=== PATIENT | male | born 1975 ===

== ENCOUNTER 2021-02-07 10:46 | Emergency (ER) | payer SELFPAY ==
--- NOTE | 2021-02-07 12:11 | Emergency Department Report ---
HPI - General Chief Complaint: Pain General Time Seen by Provider: 02/07/21 11:49 - HPI HPI: 45-year-old male with no past medical history presents complaining of left-sided chest wall/rib pain which was precipitated by an exertional event 2 hours prior to arrival. The patient states that he was attempting to close the schilling of the car. He was helping multiple other individuals using a wood board and use his upper body to try to push open the schilling when he felt a pop and had immediate pain in the left side of his chest wall/ribs. He states that the pain is worse when that part of the body is moved or when he takes a deep breath. The pain is nonradiating. It is not in the center of his chest but on the left flank. He denies any associated headache, vision change, neck pain, back pain, palpitations, diaphoresis, nausea/vomiting, abdominal pain, limb pain, or any other complaints. ED Past Medical Hx - Past Medical History Previous Medical History?: No - Social History Smoking Status: Current Every Day Smoker Substance Use Type: Alcohol - Medications Home Medications: Home Medications Medication Instructions Recorded Confirmed Last Taken Type Ibuprofen [Motrin 600 MG tab] 600 mg PO Q8H PRN #15 tablet 02/07/21 Unknown Rx ED Review of Systems ROS: Stated complaint: RT RIB FRACTURE Other details as noted in HPI Constitutional: denies: chills, fever Eyes: denies: eye pain, vision change ENT: denies: throat pain, congestion Respiratory: denies: cough, shortness of breath Cardiovascular: other (chest wall/rib pain). denies: palpitations, syncope Gastrointestinal: denies: abdominal pain, nausea, vomiting Genitourinary: denies: dysuria Musculoskeletal: denies: back pain Skin: denies: rash Neurological: denies: headache, weakness, numbness Physical Exam - Physical Exam Vital Signs: Vital Signs 02/07/21 10:57 Temperature 98.7 F Pulse Rate 90 Respiratory 22 Rate Blood Pressure 136/79 O2 Sat by Pulse 95 Oximetry Physical Exam: GENERAL: Well developed and well nourished. No acute distress HEENT: Normocephalic. No obvious signs of trauma. Moist mucous membranes. EYES: Extraocular movements are intact. Pupils are equal round and reactive to light bilaterally NECK: Supple. Trachea is midline. LUNGS: Nonlabored breathing. Equal chest rise bilaterally. Clear to auscultation bilaterally. HEART/CARDIOVASCULAR: Regular rate and rhythm. No murmurs or rubs. CHEST: There is focal bony tenderness over the left inferolateral chest wall and rib cage. VASCULAR: 2+ peripheral pulses. Cap refill < 2 seconds ABDOMEN: Abdomen is soft and nondistended. There is no significant tenderness, guarding or rebound. SKIN: Skin is warm and dry NEURO: Patient is awake, alert, and oriented. immigration attorney II-XII grossly intact. No focal deficits. Normal motor and sensory exam throughout. Normal speech. MUSCULOSKELETAL: No obvious deformities. No significant tenderness. Normal ROM throughout. BACK/SPINE: No midline tenderness or step-offs of the C/T/L spine. ED Course Vital Signs 02/07/21 10:57 Temperature 98.7 F Pulse Rate 90 Respiratory 22 Rate Blood Pressure 136/79 O2 Sat by Pulse 95 Oximetry ED Medical Decision Making - Radiology Data LEFT RIBS 5 VIEWS INDICATION / CLINICAL INFORMATION: L rib pain. COMPARISON: None available. FINDINGS: RIBS: No acute, displaced fracture or other acute abnormality. LUNGS: No acute findings. No pneumothorax. Signer Name: Hiren Doty MD Signed: 02/07/2021 11:33 AM Workstation Name: [id number] - Medical Decision Making 45-year-old male presents complaining of acute left sided flank/rib pain which are precipitated by an exertional event in which the patient was using his upper body to apply pressure to avoid beam and heard a pop, after which he had pain at that site. Pain is nonradiating and he has no other associated symptoms. He denies cough or shortness of breath, but does say that anything that moves that area causes greater pain including taking deep breaths. On initial assessment, he is afebrile and with normal vital signs. He does have slightly elevated respiratory rate. His oxygen saturation is 95% on room air. Lung auscultation reveals clear breath sounds bilaterally. There is focal tenderness over the left inferolateral chest wall and rib cage. We will therefore obtain a rib series in including to view chest x-ray to evaluate for rib fracture, pneumothorax, or other intrathoracic abnormality. On repeat assessment at 12:43 PM, the patient is resting comfortably in the bed. He is in no acute distress. He is satting 96% on room air. Chest x-ray reveals no evidence of fracture, pneumothorax, or other abnormality. I explained the patient's likely diagnosis of chest wall contusion and the need for pain control with ibuprofen 600 mg 3 times daily with food for the next 2 days and then as needed with use of an incentive spirometer. The plan is to have the patient follow up with a primary care doctor in 2 to 3 days. Nonetheless we will continue to observe the patient on thermometer tester with continuous pulse oximetry for the next 1 hour to ensure that he does not desaturate or develop pulmonary contusion. On repeat assessment at 1:50 PM, the patient is resting comfortably in bed. He has had no episodes of desaturation. He feels ready to go home. We will discharge him according to the plan outlined above. Critical care attestation.: If time is entered above; I have spent that time in minutes in the direct care of this critically ill patient, excluding procedure time. ED Disposition Clinical Impression: Chest wall contusion Disposition: DC-01 TO HOME OR SELFCARE Is pt being admited?: No Condition: Stable Instructions: Contusion, Rib Contusion Additional Instructions: Continue to use your incentive spirometer. Take ibuprofen 600 mg 3 times daily with food for 2 days and then as needed. Please follow-up with your primary care doctor in 2 to 3 days. Return to the emergency department immediately should you develop shortness of breath, significantly worsening pain, or any other new concerns Prescriptions: Ibuprofen [Motrin 600 MG tab] 600 mg PO Q8H PRN #15 tablet PRN Reason: Pain Referrals: SENG DICKINSON MD [Staff Physician] - 2-3 Days PRIMARY CARE, [Primary Care Provider] - 3-5 Days
--- NOTE | 2021-02-07 12:37 | XRay Report ---
LEFT RIBS 5 VIEWS INDICATION / CLINICAL INFORMATION: L rib pain. COMPARISON: None available. FINDINGS: RIBS: No acute, displaced fracture or other acute abnormality. LUNGS: No acute findings. No pneumothorax. Signer Name: Hiren Doty MD Signed: 02/07/2021 12:33 PM Workstation Name: [id number]
[2021-02-07] MEDS ORDERED: KETOROLAC 30 MG/1 ML INJ IV ONE (12:44)
[2021-02-07 14:33] VITALS: BP 134/76
== END 2021-02-07 14:47 | disposition home or self-care (01) ==
LOC: ED 10:46
DX: S20.212A Contusion of left front wall of thorax, initial encounter (principal); F17.200 Nicotine dependence, unspecified, uncomplicated; Z72.89 Other problems related to lifestyle; Z79.899 Other long term (current) drug therapy; X50.1XXA Overexertion from prolonged static or awkward postures, initial encounter; Y93.89 Activity, other specified; Y92.89 Other specified places as the place of occurrence of the external cause; Y99.8 Other external cause status
CPT/HCPCS: 71101; 96374; 99284; J1885